=== PATIENT | male | born 1965 | race Caucasian/White ===

== ENCOUNTER → 2016-09-12 | Outpatient (CLI) | payer MEDICAID ==
[~2016-09-12] MED LIST: ASPIRIN EC325 MG PO; ASPIRIN325 M1 PO; ATORVASTATIN CA20 MG PO; BENADRYL 25MG C25 MG PO; BENZONATATE100 MG PO; CLINDAMYCIN HC300 MG PO; DIAZEPAM10 M1 PO; DICLOFENAC 50MG50 MG PO; FIORICET 325 MG1 TAB PO; HYDROCORTISONE1% TP; METFORMIN500 MG PO; METHYLPRED DP4 MG PO; METOCLOPRAMIDE10 M2 PO; NAPROSYN 500MG500 MG PO; NEXIUM40 MG PO; NIASPAN500 MG PO; PRAVASTATIN40 MG PO; PREDNISONE PO; RANITIDINE HCL150 MG PO; SEROQUEL100 MG PO; SEROQUEL50 MG PO; TRAZODONE 50MG50 MG PO; TRAZODONE50 MG PO; TRIAMCINOL80 GM/TUBE EX; VALIUM 10MG TAB10 MG PO; VENTOLIN H0.09 MG/AC IH; VICODIN 5/500 T1 TAB PO
[2016-09-12 15:06] LABS: BUN 13 mg/dL (7-18)
[2016-09-12 15:19] LABS: GFR (ESTIMATED) 101 ML/MIN (>60)
[2016-09-13 09:41] LABS: Creatinine, Urine 181.1 mg/dL (Not Estab.); Microalbumin, Urine 3.7 ug/mL (Not Estab.)
== END ==
LOC: LAB 10:41
PROVIDERS: Internal Medicine Adolescent Medicine
DX: E11.9 Type 2 diabetes mellitus without complications (principal); E78.5 Hyperlipidemia, unspecified

== ENCOUNTER → 2017-03-13 | Outpatient (CLI) | payer MEDICAID ==
[2017-03-13 10:03] LABS: HEMOGLOBIN 16.3 g/dL (14.1-18.0); LYMPH # 2.6 K/mm3 (0.7-4.5); LYMPH % 26.9 % (10-50)
[2017-03-13 11:13] LABS: BUN 14 mg/dL (7-18)
[2017-03-13 11:27] LABS: GFR (ESTIMATED) 78 ML/MIN (>60)
== END ==
LOC: LAB 09:53
PROVIDERS: Internal Medicine Adolescent Medicine
DX: E78.5 Hyperlipidemia, unspecified (principal); E11.9 Type 2 diabetes mellitus without complications; R63.4 Abnormal weight loss